=== PATIENT | male | born 1985 | race Caucasian/White ===

== ENCOUNTER 2017-07-14 12:14 | Emergency (ER) | payer BC ==
[~2017-07-14] VITALS: Ht 188 cm; Wt 102.0 kg
[~2017-07-14 12:14] MED LIST: ALBUAER2 INH; CLIN300C10 PO; EMTR1TAB PO; IBUP-1428 PO
[2017-07-14 12:17] VITALS: TEMP 36.6; Ht 188 cm; Wt 102.0 kg
[2017-07-14] MEDS ORDERED: ONDANSETRON INJ 2 MG/ML 2 ML VIAL IV STA (12:35)
[2017-07-14] MEDS ORDERED: SODIUM CHLORIDE 0.9% 1000ML 1,000 ML IV STA (12:35)
[2017-07-14] MEDS ORDERED: KETOROLAC TROMETHAMINE 30 MG/ML VIAL IV STA (12:35)
[2017-07-14] MEDS ORDERED: OPTIRAY 320 IV PRN (12:45)
[2017-07-14 13:05] LABS: BASO % 0.3 %; BASO ABS # 0.02 K/uL (0-0.2); COMPLETE YES; EOS % 1.7 %; HEMATOCRIT 42.5 % (42-52); IG% 0.3 %; LYMPH % 23.3 %; MEAN CORPUSCULAR HEMOGLOBIN 30.2 pg (25-34); MEAN CORPUSCULAR HGB CONC 33.2 g/dl (32-36); MEAN PLATELET VOLUME 10.3 fL (7.4-10.4); MONO % 5.4 %; PLATELET COUNT 184 K/uL (130-400); RED BLOOD COUNT 4.67 M/uL (4.7-6.1); WHITE BLOOD COUNT 7.71 K/uL (4.8-10.8)
[2017-07-14 13:11] LABS: MANUAL MICROSCOPIC REQUIRED? NO; REVIEW REQ? NO; URINE APPEARANCE CLEAR (CLEAR); URINE BILIRUBIN NEG (NEG); URINE COLOR YELLOW; URINE NITRITE NEG (NEG); URINE PH 6.5 (4.5-7.5); UROBILINOGEN NEG (NEG); ZZUR CULT IF INDIC CLEAN CATCH NO
[2017-07-14 13:29] LABS: BUN/CREATININE RATIO 11.7 (10-20); CALCIUM 8.8 mg/dl (8.5-10.1)
--- NOTE | 2017-07-14 13:55 | DIAGNOSTIC IMAGING REPORT ---
CT SCAN OF THE ABDOMEN AND PELVIS WITH IV CONTRAST CLINICAL HISTORY: Right-sided abdominal pain. COMPARISON STUDY: Abdominal CT dated 07/03/2014. TECHNIQUE: Following the IV administration of 94 cc of Optiray 320, CT scan of the abdomen and pelvis is performed from the lung bases to the proximal femora. Images are reviewed in the axial, sagittal, and coronal planes. IV contrast was administered without complication. A dose lowering technique was utilized adhering to the principles of ALARA. CT DOSE: 557.09 mGy.cm FINDINGS: Lung bases: The heart is normal in size and without pericardial effusion. The lung bases are clear noting dependent atelectasis. Liver: The contrast-enhanced liver is normal in size, contour, and attenuation. There is no intrahepatic biliary ductal dilatation. The hepatic veins and portal veins are patent. Gallbladder: Unremarkable. Spleen: Mildly enlarged measuring 13.6 cm in length. Pancreas: Unremarkable. Adrenal glands: Unremarkable. Kidneys: The contrast enhanced kidneys are normal in size and without hydronephrosis. The kidneys enhance symmetrically. There is a retroaortic left renal vein. Abdominal vasculature: The abdominal aorta is normal in course and caliber. Bowel: The small bowel and colon are normal in course and caliber. The appendix is well-visualized and normal. Peritoneum: There is no intraperitoneal free air or abdominal ascites. There is a fat-containing umbilical hernia. Lymphadenopathy: None. Pelvic viscera: The bladder, prostate, and seminal vesicles are normal as visualized. Skeletal structures: No lytic or blastic lesions are seen. IMPRESSION: There are no acute infectious or inflammatory findings in the abdomen or pelvis. Electronically signed by: Jeanmarie Patton M.D. 07/14/2017 1:54 PM Dictated Date/Time: 07/14/2017 1:50 PM
[2017-07-14 14:32] VITALS: BP 122/79; PULSE 56; O2SAT 96
--- NOTE | 2017-07-14 15:56 | EMERGENCY ROOM VISIT NOTE ---
History Report prepared by Charles: Jazmine Marie Under the Supervision of: Dr. Demetrio Li D.O. First contact with patient: 12:27 Chief Complaint: ABDOMINAL PAIN Stated Complaint: SEVERE SHARP PAIN ON RT SIDE OF ABDOMEN Nursing Triage Summary: pt to the ED with c/o right sided abd pain after pulling carpet out of a truck with a hard time breathing a hr ago pt is HIV + History of Present Illness The patient is a 32 year old male who presents to the Emergency Room with complaints of persistent abdominal pain that began prior to arrival. He currently rates his discomfort as a 6/10 in severity. The patient states that while at work today he was pulling a carpet out of the center of his truck when he developed a sharp pain to the right side of his abdomen. He states that when the pain began he developed dizziness, shortness of breath and diaphoresis. The patient states that his lips also became tingly. He states that after he delivered the carpet, his pain began to dissipate. The patient states that he was then sitting down to drive and he developed a stabbing pain. He states that this morning he had diarrhea. The patient denies any history of a cholecystectomy or appendectomy. He states that he is HIV positive and states that he is undetectable on his medication. Pt denies headache, sore throat, change in vision, fevers, chest pain, nausea, vomiting, pain with urination, and melena. Source of History: patient Onset: prior to arrival Position: abdomen (right sided) Symptom Intensity: 6/10 Quality: sharp, stabbing Timing: other (persistent) Associated Symptoms: + SOB, + diarrhea Note: Associated Symptoms: dizziness, lip tingling. Review of Systems See HPI for pertinent positives & negatives. A total of 10 systems reviewed and were otherwise negative. Past Medical & Surgical Medical Problems: (1) HIV (human immunodeficiency virus infection) Family History Cancer Hypertension Kidney disease Kidney stones Social History Smoking Status: Never Smoker Alcohol Use: none Drug Use: marijuana Marital Status: , in relationship Housing Status: lives with significant other Occupation Status: employed Current/Historical Medications Scheduled Nusgpgwhtabyp-Lpuwfuapsfo-Duxp (Complera), 1 TABS PO DAILY Allergies Coded Allergies: Penicillins (Verified Allergy, Unknown, HIVES, 07/14/17) Physical Exam Vital Signs Date Time Temp Pulse Resp B/P (MAP) Pulse Ox O2 Delivery O2 Flow Rate FiO2 07/14/17 14:32 56 16 122/79 96 07/14/17 13:08 59 16 136/82 94 Room Air 07/14/17 12:17 36.6 79 20 144/92 96 Room Air Physical Exam GENERAL: alert, well appearing, sitting up in bed, well nourished, minimal distress holding right upper quadrant, non-toxic EYE EXAM: normal conjunctiva, PERRL and EOM's grossly intact OROPHARYNX: no exudate, no erythema, lips, buccal mucosa, and tongue normal and mucous membranes are moist NECK: supple, no nuchal rigidity, no adenopathy, non-tender LUNGS: Clear to auscultation. Normal chest wall mechanics HEART: no murmurs, S1 normal and S2 normal ABDOMEN: abdomen soft, minimal tenderness in right mid-abdomen, normo-active bowel sounds, no masses, no rebound or guarding. BACK: Back is symmetrical on inspection and there is no deformity, no midline tenderness, no CVA tenderness. SKIN: no rashes and no bruising UPPER EXTREMITIES: upper extremities are grossly normal. LOWER EXTREMITIES: No pitting edema. NEURO EXAM: Normal sensorium, cranial nerves II-XII grossly intact, normal speech, no gross weakness of arms, no gross weakness of legs. Medical Decision & Procedures ER Provider Diagnostic Interpretation: CT:Per my review, radiologist interpretation. CT SCAN OF THE ABDOMEN AND PELVIS WITH IV CONTRAST CLINICAL HISTORY: Right-sided abdominal pain. COMPARISON STUDY: Abdominal CT dated 07/03/2014. TECHNIQUE: Following the IV administration of 94 cc of Optiray 320, CT scan of the abdomen and pelvis is performed from the lung bases to the proximal femora. Images are reviewed in the axial, sagittal, and coronal planes. IV contrast was administered without complication. A dose lowering technique was utilized adhering to the principles of ALARA. CT DOSE: 557.09 mGy.cm FINDINGS: Lung bases: The heart is normal in size and without pericardial effusion. The lung bases are clear noting dependent atelectasis. Liver: The contrast-enhanced liver is normal in size, contour, and attenuation. There is no intrahepatic biliary ductal dilatation. The hepatic veins and portal veins are patent. Gallbladder: Unremarkable. Spleen: Mildly enlarged measuring 13.6 cm in length. Pancreas: Unremarkable. Adrenal glands: Unremarkable. Kidneys: The contrast enhanced kidneys are normal in size and without hydronephrosis. The kidneys enhance symmetrically. There is a retroaortic left renal vein. Abdominal vasculature: The abdominal aorta is normal in course and caliber. Bowel: The small bowel and colon are normal in course and caliber. The appendix is well-visualized and normal. Peritoneum: There is no intraperitoneal free air or abdominal ascites. There is a fat-containing umbilical hernia. Lymphadenopathy: None. Pelvic viscera: The bladder, prostate, and seminal vesicles are normal as visualized. Skeletal structures: No lytic or blastic lesions are seen. IMPRESSION: There are no acute infectious or inflammatory findings in the abdomen or pelvis. Electronically signed by: Jeanmarie Patton M.D. 07/14/2017 1:54 PM Dictated Date/Time: 07/14/2017 1:50 PM Laboratory Results 07/14/17 12:50 Red Blood Count 4.67, Mean Corpuscular Volume 91.0, Mean Corpuscular Hemoglobin 30.2, Mean Corpuscular Hemoglobin Concent 33.2, Mean Platelet Volume 10.3, Neutrophils (%) (Auto) 69.0, Lymphocytes (%) (Auto) 23.3, Monocytes (%) (Auto) 5.4, Eosinophils (%) (Auto) 1.7, Basophils (%) (Auto) 0.3, Neutrophils # (Auto) 5.32, Lymphocytes # (Auto) 1.80, Monocytes # (Auto) 0.42, Eosinophils # (Auto) 0.13, Basophils # (Auto) 0.02 07/14/17 12:50 Test 07/14/17 12:50 White Blood Count 7.71 K/uL (4.8-10.8) Red Blood Count 4.67 M/uL (4.7-6.1) Hemoglobin 14.1 g/dL (14.0-18.0) Hematocrit 42.5 % (42-52) Mean Corpuscular Volume 91.0 fL (80-100) Mean Corpuscular Hemoglobin 30.2 pg (25-34) Mean Corpuscular Hemoglobin Concent 33.2 g/dl (32-36) Platelet Count 184 K/uL (130-400) Mean Platelet Volume 10.3 fL (7.4-10.4) Neutrophils (%) (Auto) 69.0 % Lymphocytes (%) (Auto) 23.3 % Monocytes (%) (Auto) 5.4 % Eosinophils (%) (Auto) 1.7 % Basophils (%) (Auto) 0.3 % Neutrophils # (Auto) 5.32 K/uL (1.4-6.5) Lymphocytes # (Auto) 1.80 K/uL (1.2-3.4) Monocytes # (Auto) 0.42 K/uL (0.11-0.59) Eosinophils # (Auto) 0.13 K/uL (0-0.5) Basophils # (Auto) 0.02 K/uL (0-0.2) RDW Standard Deviation 43.2 fL (36.4-46.3) RDW Coefficient of Variation 13.1 % (11.5-14.5) Immature Granulocyte % (Auto) 0.3 % Immature Granulocyte # (Auto) 0.02 K/uL (0.00-0.02) Urine Color YELLOW Urine Appearance CLEAR (CLEAR) Urine pH 6.5 (4.5-7.5) Urine Specific [place] 1.020 (1.000-1.030) Urine Protein NEG (NEG) Urine Glucose (UA) NEG (NEG) Urine Ketones NEG (NEG) Urine Occult Blood NEG (NEG) Urine Nitrite NEG (NEG) Urine Bilirubin NEG (NEG) Urine Urobilinogen NEG (NEG) Urine Leukocyte Esterase NEG (NEG) Urine WBC (Auto) 1-5 /hpf (0-5) Urine RBC (Auto) 0-4 /hpf (0-4) Urine Hyaline Casts (Auto) 1-5 /lpf (0-5) Urine Epithelial Cells (Auto) 5-10 /lpf (0-5) Urine Bacteria (Auto) NEG (NEG) Anion Gap 5.0 mmol/L (3-11) Est Creatinine Clear Calc Drug Dose 132.7 ml/min Estimated GFR () 113.3 Estimated GFR (Non- 97.8 BUN/Creatinine Ratio 11.7 (10-20) Calcium Level 8.8 mg/dl (8.5-10.1) Total Bilirubin 2.0 mg/dl (0.2-1) Direct Bilirubin 0.3 mg/dl (0-0.2) Aspartate Amino Transf (AST/SGOT) 21 U/L (15-37) Alanine Aminotransferase (ALT/SGPT) 33 U/L (12-78) Alkaline Phosphatase 76 U/L (45-117) Total Protein 7.0 gm/dl (6.4-8.2) Albumin 3.9 gm/dl (3.4-5.0) Lipase 130 U/L (73-393) Laboratory results per my review. Medications Administered Medications (Trade) Dose Ordered Sig/Kim Route Start Time Stop Time Status Last Admin Dose Admin Sodium Chloride 1,000 ml @ 999 mls/hr Q1H1M STAT IV 07/14/17 12:35 07/14/17 13:35 DC 07/14/17 13:08 999 MLS/HR Ondansetron HCl (Zofran Inj) 4 mg NOW STAT IV 07/14/17 12:35 07/14/17 12:37 DC 07/14/17 13:07 4 MG Ketorolac Tromethamine (Toradol Inj) 30 mg NOW STAT IV 07/14/17 12:35 07/14/17 12:37 DC 07/14/17 13:08 30 MG ECG Indication: abdominal pain Rate (beats per minute): 55 Rhythm: sinus bradycardia Findings: no ectopy, other (normal axis) ED Course ED COURSE: Vital signs were reviewed and showed normal vitals The patients medical record was reviewed The above diagnostic studies were performed and reviewed. ED treatments and interventions as stated above. 1231: The patient was evaluated in room A3. A complete history and physical examination was performed. 1235: Ordered Toradol Inj 30 mg IV, Zofran Inj 4 mg IV, Sodium Chloride 1000 ml @ 999 mls/hr IV. 1408: Upon reevaluation, the patient is feeling better.I discussed my findings with the patient and he understands and agrees with the treatment plan. Based on the patients age, coexisting illnesses, exam and lab findings the decision to treat as an outpatient was made. The patient remained stable while under my care. The patient appeared well at the time of discharge. Medical Decision Differential diagnoses includes but is not limited to gastritis, peptic ulcer disease, GERD, gallbladder disease, pancreatitis, small bowel obstruction, acute coronary syndrome, pericarditis, ischemic bowel, irritable bowel disease, irritable bowel syndrome, appendicitis, diverticulitis, malignancy, hernia, urinary tract infection, torsion, perforation, trauma, infectious. Medication Reconciliation: I attest that I have personally reviewed the patient' s current medication list. Blood pressure screening: Patient was found to have normal blood pressure on screening and does not require follow-up. Patient is a 32-year-old male that presents to ER for abdominal pain which started following pulling a rug out of his truck. He notes the pain is in the right upper quadrant. Abdominal exam is fairly benign but he does have tenderness in the right mid abdominal wall. CBC all BMP and LFTs is unremarkable. Lipase is normal. Total bili is slightly elevated at 2. This appears to be persistently elevated since 2013. CT of the abdomen and pelvis was benign. Pain improved with Toradol. CD4 count was 285. He takes all of his HIV medications. I do not believe this is infectious. No signs of cholecystitis. Patient was updated at bedside and discharged follow-up with his PCP with muscle skeletal abdominal wall pain. Discussed with Pt concerning signs and symptoms to watch out for. Pt was instructed to follow up with their PCP and discussed with the patient their option to return to the ED at anytime for persistent or worsening symptoms. The appropriate anticipatory guidance and out-patient management, including indications for return to the emergency department, were explained at length to the patient and understood. Impression Primary Impression: Abdominal wall pain Scribe Attestation The scribe's documentation has been prepared under my direction and personally reviewed by me in its entirety. I confirm that the note above accurately reflects all work, treatment, procedures, and medical decision making performed by me. Departure Information Dispostion Home / Self-Care Referrals Daron Meeks M.D. (PCP) Forms Call Back Authorization, HOME CARE DOCUMENTATION FORM, IMPORTANT VISIT INFORMATION Patient Instructions Abdominal Pain - [facility], [facility] Additional Instructions Please follow up with your primary care doctor with in the next 24 hours. Any worsening of your symptoms, please return to the ED immediately. This includes any fevers greater than 100.4, worsening pain, chest pain, shortness breath, persistent nausea, vomiting, unable to eat or drink, or any other concerning signs or symptoms from your standpoint. Take Motrin or Tylenol as needed for pain.
[2017-07-14 17:02] LABS: ISTAT CREATININE 1.1 mg/dl (0.6-1.3); ISTAT HEMOGLOBIN 14.3 g/dl (14.0-18.0); ISTAT IONIZED CALCIUM 1.18 mmol/l (1.12-1.32)
== END 2017-07-14 14:33 | disposition home or self-care (01) ==
LOC: C.EDB 12:16 → C.EDA 14:33
DX: R10.11 Right upper quadrant pain (principal); R10.31 Right lower quadrant pain; R42 Dizziness and giddiness; R06.02 Shortness of breath; B20 Human immunodeficiency virus [HIV] disease; R00.1 Bradycardia, unspecified; F12.90 Cannabis use, unspecified, uncomplicated; Z82.49 Family history of ischemic heart disease and other diseases of the circulatory system; Z84.1 Family history of disorders of kidney and ureter

== ENCOUNTER 2018-05-29 00:47 | Emergency (ER) | payer BC ==
[~2018-05-29] VITALS: Ht 188 cm; Wt 93.3 kg
[~2018-05-29 00:47] MED LIST changes: -ALBUAER2 INH; -CLIN300C10 PO; -IBUP-1428 PO
[2018-05-29 00:53] VITALS: TEMP 36.9; Ht 188 cm; Wt 93.3 kg
[2018-05-29] MEDS ORDERED: HYDROmorphone INJ 1 MG/ML SYR IV STA (01:09)
--- NOTE | 2018-05-29 01:10 | EMERGENCY ROOM VISIT NOTE ---
History Report prepared by Charles: Guera Ruiz Under the Supervision of: Dr. Sylvester Hope M.D. First contact with patient: 01:01 Chief Complaint: LACERATION/CUT (SUT/DERMABOND) Stated Complaint: LACERATION TO BASE OF THUMB OF RIGHT HAND History of Present Illness The patient is a 33 year old male who presents to the Emergency Room with complaints of a laceration on his right thumb that occurred a few hours ago. The patient rates his pain a 9/10 in severity. He notes he is left handed. The patient went to [place] ER and there was no surgeon to fix his hand. They put gauze and an timothy bandage on his hand and told him to call at 0630 when the surgeon is available. He states he came straight to our ER after leaving [place]. The patient reports he had surgery on his right knee a week ago and has not been very mobile since. He states he was cutting plastic with a utility blade and it slipped and cut his thumb. He notes he is not on blood thinners. He reports he ran out of pain medication for his knee yesterday. He denies abdominal pain. The patient states he is HIV positive. Source of History: patient Onset: a few hours ago Position: finger(s) Symptom Intensity: 9/10 Associated Symptoms: No abdominal pain Review of Systems See HPI for pertinent positives & negatives. A total of 6 systems reviewed and were otherwise negative. Past Medical & Surgical Medical Problems: (1) HIV (human immunodeficiency virus infection) Family History Cancer Hypertension Kidney disease Kidney stones Social History Smoking Status: Current Every Day Smoker Alcohol Use: none Drug Use: marijuana Marital Status: , in relationship Housing Status: lives with significant other Occupation Status: employed Current/Historical Medications Scheduled Cephalexin Monohydrate (Keflex), 500 MG PO QID Zkkhcvdrwwbjn-Iqszrnsazbk-Qibb (Complera), 1 TABS PO DAILY Scheduled PRN Oxycodone Immediate Rel Tab (Roxicodone Ir), 1-2 TAB PO Q4H PRN for Severe Pain Allergies Coded Allergies: Penicillins (Verified Allergy, Unknown, HIVES, 05/29/18) Physical Exam Vital Signs Date Time Temp Pulse Resp B/P (MAP) Pulse Ox O2 Delivery O2 Flow Rate FiO2 05/29/18 03:10 73 18 142/79 97 Room Air 05/29/18 00:53 36.9 118 18 137/81 98 Room Air Physical Exam GENERAL: Patient is well appearing and in no acute distress. EYES: No scleral icterus, unremarkable pupils. ENT: Mucous membranes moist, no nasal congestion. NECK: No masses appreciated, no meningismus, trachea is midline. RESPIRATORY: No dyspnea. Clear to auscultation and equal bilaterally. No wheeze , no rhonchi. CARDIOVASCULAR: Regular rate and rhythm. No murmurs, rubs, gallops appreciated. EXTREMITIES: Normal motion all extremities, no cyanosis, no edema. 2 cm laceration over dorsal aspect of the first MCP joint of right hand, laceration through tendon and appears to enter joint capsule with flexion of thumb, no active bleeding, no drainage, distal N/V/SLT intact, unable to extend thumb at MCP joint nor pip joint. NEUROLOGIC: Alert and oriented, no acute motor or sensory deficits, no focal weakness, cranial nerves grossly intact. SKIN: No rash, no jaundice, no diaphoresis. Medical Decision & Procedures ER Provider Diagnostic Interpretation: Radiology results stated below per my interpretation: 3 VIEW RIGHT HAND X-RAY: Soft tissue injury dorsal aspect of first MCP, no fracture, no dislocation. Medications Administered Medications (Trade) Dose Ordered Sig/Kim Route Start Time Stop Time Status Last Admin Dose Admin Hydromorphone HCl (Dilaudid Inj) 1 mg NOW STAT IV 05/29/18 01:09 05/29/18 01:12 DC 05/29/18 01:19 1 MG Cefazolin Sodium 1000 mg/Dextrose 57.5 ml @ 100 mls/hr NOW STAT IV 05/29/18 01:45 05/29/18 02:19 DC 05/29/18 02:07 100 MLS/HR Lidocaine HCl (Buffered Lidocaine 1% Inj) 5 ml ONE ONCE INFIL 05/29/18 01:45 05/29/18 01:50 DC 05/29/18 02:08 5 ML Oxycodone HCl (Roxicodone Immediate Rel 5MG Home Pack) 2 homepack UD ONCE PO 05/29/18 03:00 05/29/18 03:01 DC 05/29/18 03:05 2 HOMEPACK Procedure Location: right hand Total length: 2.5cm Complexity: simple Verbal consent was obtained after the risks and benefits were explained, including but not limited to bleeding, scarring, infection, pain, and bone/joint /nerve damage. At this time, the risks of the procedure are less than the risks of NOT performing the procedure. A time out was taken and the correct patient and site identified. The skin was prepped with betadine. The target area was anesthetized with 3 ml of 1% lidocaine without epinephrine. Copious irrigation was performed using sterile saline. The skin was re-prepped with betadine and a sterile field set. The wound was explored for foreign bodies and none found. Examination revealed no injury to deep structures such as tendons, bone, or significant blood vessels. Debridement was not performed. The wound edges were approximated using 9, 4-0 simple interrupted nylon sutures. Hemostasis and excellent approximation was achieved. Antibacterial ointment and a sterile dressing applied. Detailed wound care instructions and signs and symptoms of infection reviewed with the patient. No complications and the patient tolerated the procedure well. ED Course 0101: The patient was evaluated in room A12B. A complete history and physical exam was performed. 0145: I spoke with Dr. Mckeon, Orthopedic Surgeon. He recommends giving a dose of Ancef and suturing the skin. He also recommends the patient follow up with the office at 10 am tomorrow morning and to remain NPO. 0149: The patient does not know what penicillin allergy he has but states he has had no problems with amoxicillin in the past. 0255: Reevaluated the patient. Discussed results and discharge instructions: He verbalized understanding and agreement. The patient is ready for discharge. Medical Decision Differential: Simple Laceration, Complex Laceration, Imbedded Foreign Body, Contamination/Infection Risk, Neurovascular Compromise, Tendon Injury, Compartment Syndrome, as well as Tetanus Status, amongst other pathologies entertained. Pleasant 33 yr old male arrives for evaluation of laceration to dorsal MCP of right hand. Seen at OSH initially and dressing applied to wrist with compression of both radius and ulna with gauze and tight circumferential wrap of wrist with Coban. Patient severely uncomfortable with discoloration of entire hand. Pressure dressing slowly removed with excellent return of flow and patient starting to feel much better. Given IV dilaudid due to discomfort. Wound with multiple areas of silver nitrate like padilla and what appears to be some FloSeal? Xrays with no fracture. Exam it does appear he got capsule of joint though I am not convinced it is through and through. He did however clearly get the extensor tendon. Excellent distal refill and SLT still intact other than just distal to wound. Wound irrigated copiously and sutures placed across laceration in simple. Splint applied. Patient tolerated this well. Home with Oxy IR and Keflex. Dr Mckeon to have him in clinic later this morning. Patient comfortable with this plan. Repeat exams of hand reveal good return blood flow and no further issues besides laceration. Medication Reconcilliation Current Medication List: was personally reviewed by me Blood Pressure Screening Patient's blood pressure: Elevated blood pressure Blood pressure disposition: Elevated BP felt to be situational Impression Primary Impression: Laceration of thumb with tendon involvement Scribe Attestation The scribe's documentation has been prepared under my direction and personally reviewed by me in its entirety. I confirm that the note above accurately reflects all work, treatment, procedures, and medical decision making performed by me. Departure Information Dispostion Home / Self-Care Prescriptions Oxycodone Immediate Rel Tab (ROXICODONE IR) 5 Mg Tab 1-2 TAB PO Q4H Y for Severe Pain, #15 TAB Prov: Sylvester Hope M.D. 05/29/18 Cephalexin Monohydrate (Keflex) 500 Mg Cap 500 MG PO QID for 10 Days, #40 CAP Prov: Sylvester Hope M.D. 05/29/18 Referrals Daorn Meeks M.D. (PCP) Michael Mckeon MD Patient Instructions My [facility] Additional Instructions Call office of Dr Mckeon in am today to verify time for appointment. Keep dressing in place though if severe pain may try loosening it. Return if pain getting out of control, heavy bleeding, or other concerns. You have received a narcotic pain medication prescription. These medications may cause drowsiness and should not be used with other sedative medications. Do not drive, drink alcohol, perform dangerous activities, nor make important decisions after taking these medications. [facility] use or inappropriate use may lead to addiction. Problem Qualifiers Primary Impression: Laceration of thumb with tendon involvement Encounter type: initial encounter Laterality: right Qualified Codes: S61.011A - Laceration without foreign body of right thumb without damage to nail , initial encounter; S66.921A - Laceration of unspecified muscle, fascia and tendon at wrist and hand level, right hand, initial encounter
[2018-05-29] MEDS ORDERED: LIDOCAINE 1% BUFFERED INJ 20 ML VIAL INFIL ONE (01:45)
[2018-05-29] MEDS ORDERED: CEFAZOLIN IV 1,000 MG in DEXTROSE 5% 50ML 50 ML IV STA (01:45)
[2018-05-29] MEDS ORDERED: CEPH500C PO (02:54)
[2018-05-29] MEDS ORDERED: OXYC-737 PO (02:54)
[2018-05-29] MEDS ORDERED: OXYCODONE IR HOME PACK PO ONE (03:00)
[2018-05-29 03:10] VITALS: BP 142/79; PULSE 73; O2SAT 97
--- NOTE | 2018-05-29 07:35 | DIAGNOSTIC IMAGING REPORT ---
RIGHT HAND 3 VIEWS CLINICAL HISTORY: First finger laceration. FINDINGS: 3 views of the right hand are obtained. No prior studies are available for comparison at the time of dictation. The skeletal structures are well mineralized. No fracture is seen. The joint spaces of the hand are maintained. There is soft tissue edema and laceration identified in the first finger just distal to the metacarpophalangeal joint. Subcutaneous gas is noted. Radiodense foreign bodies are identified at this site. IMPRESSION: 1. No acute bony abnormality is seen in the right hand. 2. Soft tissue injury with laceration and foreign bodies in the first finger as above. Electronically signed by: Jeanmarie Patton M.D. 05/29/2018 7:33 AM Dictated Date/Time: 05/29/2018 7:32 AM
== END 2018-05-29 03:06 | disposition home or self-care (01) ==
LOC: C.EDB 00:48 → C.EDA 03:06
DX: S61.011A Laceration without foreign body of right thumb without damage to nail, initial encounter (principal); S66.921A Laceration of unspecified muscle, fascia and tendon at wrist and hand level, right hand, initial encounter; W45.8XXA Other foreign body or object entering through skin, initial encounter; Y93.89 Activity, other specified; B20 Human immunodeficiency virus [HIV] disease; F17.200 Nicotine dependence, unspecified, uncomplicated; Z88.0 Allergy status to penicillin